=== PATIENT | male | born 1960 | race Two or more races ===

== ENCOUNTER → 2025-06-12 | Outpatient (CLI) | payer MEDICARE, MEDICAID, SELFPAY ==
[2025-06-10 10:46] LABS: Albumin, Serum 4.8 gm/dL (3.4-4.8); Anion Gap 8 (7-16); BUN/Creatinine Ratio 9 Ratio (12-20); Blood Urea Nitrogen 13 mg/dL (9-23); Calcium 9.8 mg/dL (8.3-10.6); Calcium (Corrected) 9.8 mg/dL (8.5-10.1); Carbon Dioxide 26.7 mMol/L (20.0-31.0); Chloride 104 mMol/L (98-107); Creatinine (Component) 1.5 mg/dL (0.6-1.3); Glucose 107 mg/dL (74-106); Osmolality,Calculated 277 (275-295); Phosphorous 3.6 mg/dL (2.4-5.1); Potassium 5.3 mMol/L (3.4-5.1); Sodium 139 mMol/L (136-145); eGFR 51 See Note
--- NOTE | 2025-06-12 14:00 | XR_ITS ---
Examination: CT abdomen, without intravenous contrast. CT abdomen, with intravenous contrast. Sagittal and coronal 2-D reconstructions. Time of exam: June 12, 2025, 1451 hours INDICATIONS: Diagnosis ventral hernia without obstruction or gangrene, left-sided groin abdominal pain 1 year CTDI: vol (mGy) 21.8 DLP: (mGycm) 954 Technique: Multiple 3.0 mm axial noncontrast images of the abdomen have been obtained. Multiple 3.0 mm axial images post administration 30 cc [id number] intravenous contrast have been obtained. Sagittal and coronal 3-D reconstructions have been obtained. Low dose protocols were performed. One or more of the following dose reduction techniques were used; automated exposure control, adjustment of the mA and/or KV according to patient size, use of iterative reconstruction technique. Findings: No focal liver or splenic lesion No gallstones No pancreatic or adrenal mass Significant bilateral renal scarring, no hydronephrosis Normal appendix No bowel obstruction Urinary bladder wall thickening, cystitis pattern IMPRESSION: Significant bilateral renal scarring, no hydronephrosis Normal appendix No bowel obstruction Urinary bladder wall thickening, differential would include cystitis Minute 4 mm fat-containing umbilical hernia
== END | disposition home or self-care (01) ==
PROVIDERS: PCP Family Medicine; Referring Provider Surgery; Visit Provider Surgery
DX: N28.89 Other specified disorders of kidney and ureter (principal); N32.89 Other specified disorders of bladder; K43.9 Ventral hernia without obstruction or gangrene
CPT/HCPCS: 36415; 74170; 80069; A4649; Q9967